=== PATIENT | male | born 1990 | race African-American/Black ===

== ENCOUNTER 2020-10-17 23:30 | Emergency (ER) | payer MEDICAID, SELFPAY ==
[2020-10-18 16:51] LABS: SARS-CoV-2 PCR by NAA Not Detected (NotDetected)
== END 2020-10-18 01:43 | disposition home or self-care (01) ==
LOC: CSHERS 23:30
DX: R20.2 Paresthesia of skin (principal); R05 Cough; Z20.822 Contact with and (suspected) exposure to COVID-19; F17.290 Nicotine dependence, other tobacco product, uncomplicated
CPT/HCPCS: 87635; 99283; U0003; U0005